=== PATIENT | male | born 1980 | race Caucasian/White ===

== ENCOUNTER 2018-01-10 20:41 | Emergency (ER) | payer OTHER, SELFPAY ==
[2018-01-10 20:45] VITALS: BP 178/94; PULSE 139; RESP 20; TEMP 37.9; O2SAT 98; BMI 32.7
--- NOTE | 2018-01-10 20:55 | HMH.EDUTC ---
[facility] [place] Clinical Impression: Conjunctivitis Qualifiers: Conjunctivitis type: unspecified Laterality: left Qualified Code(s): H10.9 - Unspecified conjunctivitis Disposition: Home, Self-Care Condition on Discharge: Good Instructions: Conjunctivitis, DI for Conjunctivitis Additional Instructions: Use drops as prescribed Follow up with family doctor in 24-48 hours if no improvement or worsening of symptoms Warm compresses on eye will help to soothe the eye Baby shampoo and washrag to clean eye Make sure to wash hands well after applying drops or cleaning eye Straight to ER if any life threatening symptoms Patient was given Gentamycin drops in [facility] and advised 1-2 drops in left eye every 4 hours Referrals: Jordon Curry [Primary Care Provider] - Time of Disposition: 21:10 Medical Decision Making - Medical Records Medical records reviewed: Yes: I reviewed the patient's medical records. - Eulogio Inquiry Pt receiving controlled substance: No Eulogio was queried for this patient: No Vital Signs: 01/10/18 20:45 Temperature 100.2 F H Temperature Source Temporal Artery Scan Pulse Rate [Right Brachial] 139 H Respiratory Rate 20 Blood Pressure [Right Arm] 178/94 Blood Pressure Mean [Right Arm] 122 Blood Pressure Source [Right Arm] Automatic Cuff Blood Pressure Position [Right Arm] Sitting 02 Sat by Pulse Oximetry 98 Oxygen Delivery Method Room Air - Lab Data Lab results reviewed: Yes: I reviewed the patient's lab results. [facility] [place] - General Stated complaint: L eye swollen and red Time Seen by Provider: 01/10/18 20:45 Mode of Arrival: Family Vehicle Source of Information: Patient Limitations: No Limitations Description of Symptoms (Recalled from Triage Doc. by RN): C/O SWOLLEN RED LEFT EYE. STARTED WITH FLU,LIKE SYMPTOMS AND FEVER ON FRIDAY. WAS SEEN IN [facility] ON FRIDAY AND AGAIN BY PCP TODAY HEENT Symptoms (Recalled from RN notes): Yes Resp Symptoms (Recalled from RN notes): Yes Skin Symptoms (Recalled from RN notes): No MS Symptoms (Recalled from RN notes): No Functional Status (Recalled from RN notes): N/A - History of Present Illness Provider Complaint: Patient state that he began having flu like symptoms on and was seen in [facility] and diagnosed with VRI States that symptoms continued to get worse and he saw family doctor this morning and was diagnosed with Sinus infection and put on antibiotics State that he went home and laid down State that later on in the day he begin to have burning and itchy like feeling in his left eye State that then he noticed his eye was looking red and having drainage State that he was worried that he may have pink eye so he came in to get checked out. - Related Data Home Medications Medication Instructions Recorded Confirmed lisinopril 5 mg tablet 5 mg PO ONCE 01/08/18 01/10/18 propranolol 40 mg tablet 40 mg PO ONCE tab 01/08/18 01/10/18 Allergies Allergy/AdvReac Type Severity Reaction Status Date / Time No Known Allergies Allergy Verified 01/10/18 20:54 - Worker's Comp Is this a Worker's Comp case?: No [facility] History I have reviewed the patient's past medical history: Yes Medical History: Reports:: Hypertension Other Surgeries: Yes: No Previous Surgery - Social History Smoking Status: Never smoker Alcohol Intake: never - Psychiatric History Expresses thoughts of harming self/others: None Suicide Plan Description: No Plan Family Hx:: Cancer, Coronary Artery Disease, Hypertension, Hyperlipidemia, Heart Attack ROS Obtained: Yes All systems reviewed & no additional complaints - Constitutional Constitutional: Reports fever(s) - Eyes Eyes: Reports irritation, Reports other Comments: Eye draining, itchy red with matting Physical Exam - General General appearance: alert, in no apparent distress - Expanded Eye Exam Sclera/Conjunctival: left: exudate Comment: Conjunctiva red, drainage noted from tearduct area a
--- NOTE | 2018-01-10 21:01 | ED_ITS ---
[facility] [place] Disposition Clinical Impression: Conjunctivitis Qualifiers: Conjunctivitis type: unspecified Laterality: left Qualified Code(s): H10.9 - Unspecified conjunctivitis Disposition: Home, Self-Care Condition on Discharge: Good Instructions: Conjunctivitis, DI for Conjunctivitis Additional Instructions: Use drops as prescribed Follow up with family doctor in 24-48 hours if no improvement or worsening of symptoms Warm compresses on eye will help to soothe the eye Baby shampoo and washrag to clean eye Make sure to wash hands well after applying drops or cleaning eye Straight to ER if any life threatening symptoms Patient was given Gentamycin drops in [facility] and advised 1-2 drops in left eye every 4 hours Referrals: Jordon Curry [Primary Care Provider] - Time of Disposition: 21:10 Medical Decision Making - Medical Records Medical records reviewed: Yes: I reviewed the patient's medical records. - Eulogio Inquiry Pt receiving controlled substance: No Eulogio was queried for this patient: No Vital Signs: 01/10/18 20:45 Temperature 100.2 F H Temperature Source Temporal Artery Scan Pulse Rate [Right Brachial] 139 H Respiratory Rate 20 Blood Pressure [Right Arm] 178/94 Blood Pressure Mean [Right Arm] 122 Blood Pressure Source [Right Arm] Automatic Cuff Blood Pressure Position [Right Arm] Sitting 02 Sat by Pulse Oximetry 98 Oxygen Delivery Method Room Air - Lab Data Lab results reviewed: Yes: I reviewed the patient's lab results. [facility] [place] HPI - General Stated complaint: L eye swollen and red Time Seen by Provider: 01/10/18 20:45 Mode of Arrival: Family Vehicle Source of Information: Patient Limitations: No Limitations Description of Symptoms (Recalled from Triage Doc. by RN): C/O SWOLLEN RED LEFT EYE. STARTED WITH FLU,LIKE SYMPTOMS AND FEVER ON FRIDAY. WAS SEEN IN [facility] ON FRIDAY AND AGAIN BY PCP TODAY HEENT Symptoms (Recalled from RN notes): Yes Resp Symptoms (Recalled from RN notes): Yes Skin Symptoms (Recalled from RN notes): No MS Symptoms (Recalled from RN notes): No Functional Status (Recalled from RN notes): N/A - History of Present Illness Provider Complaint: Patient state that he began having flu like symptoms on and was seen in [facility] and diagnosed with VRI States that symptoms continued to get worse and he saw family doctor this morning and was diagnosed with Sinus infection and put on antibiotics State that he went home and laid down State that later on in the day he begin to have burning and itchy like feeling in his left eye State that then he noticed his eye was looking red and having drainage State that he was worried that he may have pink eye so he came in to get checked out. - Related Data Home Medications Medication Instructions Recorded Confirmed lisinopril 5 mg tablet 5 mg PO ONCE 01/08/18 01/10/18 propranolol 40 mg tablet 40 mg PO ONCE tab 01/08/18 01/10/18 Allergies Allergy/AdvReac Type Severity Reaction Status Date / Time No Known Allergies Allergy Verified 01/10/18 20:54 - Worker's Comp Is this a Worker's Comp case?: No [facility] History I have reviewed the patient's past medical history: Yes Medical History: Reports:: Hypertension Other Surgeries: Yes: No Previous Surgery - Social History Smoking Status: Never smoker Alcohol Intake: never - Psychiatric History Expresses th
[2018-01-10 21:15] VITALS: BP 171/92; PULSE 144; RESP 20; TEMP 37.9; O2SAT 99
== END 2018-01-10 21:16 | disposition home or self-care (01) ==
PROVIDERS: Emergency Provider Nurse Practitioner; Family Provider Internal Medicine; PCP Internal Medicine
DX: H10.32 Unspecified acute conjunctivitis, left eye (principal); I10 Essential (primary) hypertension
CPT/HCPCS: 99201

== ENCOUNTER → 2019-08-10 08:47 | Outpatient (CLI) | payer OTHER, SELFPAY ==
--- NOTE | 2019-08-10 08:52 | US_ITS ---
PROCEDURE: US ABDOMEN COMPLETE CLINICAL INDICATION: ABD PAIN RADIATING RT GROIN Right upper quadrant pain COMPARISON: No exams were available for comparison FINDINGS: PANCREAS: Unremarkable. No obvious mass or abnormal fluid collection. No ductal dilatation LIVER: No focal liver lesions demonstrated. Homogeneous echogenicity. No intrahepatic biliary ductal dilatation evident. There is appropriate direction of blood flow within a non dilated portal vein. There is increased echogenicity of the liver with poor through transmission of sound consistent with fatty liver. RIGHT KIDNEY: Unremarkable. Normal size and echogenicity. No hydronephrosis LEFT KIDNEY: Unremarkable. Normal size and echogenicity. No hydronephrosis GALLBLADDER: No gallstones, gallbladder wall thickening, pericholecystic fluid, or biliary dilatation. AORTA: No evidence of aneurysmal dilatation. SPLEEN: Unremarkable. Normal size and echogenicity ASCITES: None demonstrated. IMPRESSION: Fatty liver otherwise negative Dictated by: Liam Mccord MD 08/10/2019 17:59 Electronically signed by Liam Mccord MD in [place] 08/10/2019 17:59
== END ==
PROVIDERS: PCP Internal Medicine; Visit Provider Internal Medicine
DX: R10.31 Right lower quadrant pain (principal)
CPT/HCPCS: 76700

== ENCOUNTER → 2020-03-06 12:27 | Outpatient (CLI) | payer OTHER, SELFPAY ==
[2020-03-06 18:08] LABS: Coronavirus 19 IgG Antibody Negative (Negative); Coronavirus 19 IgM Antibody Negative (Negative)
== END ==
PROVIDERS: Visit Provider Internal Medicine
DX: Z03.818 Encounter for observation for suspected exposure to other biological agents ruled out (principal)
CPT/HCPCS: 36415; 86328

== ENCOUNTER → 2020-08-23 06:48 | Outpatient (CLI) | payer OTHER, SELFPAY ==
[2020-08-23 14:39] LABS: Chol/HDL Ratio 4.1 (1-3.5); Cholesterol 172 mg/dl (140-200); HDL Cholesterol 42 mg/dl (40-60); Triglycerides 246 mg/dl (30-150); VLDL Cholesterol 49 mg/dL (0-40)
== END ==
PROVIDERS: Visit Provider Internal Medicine
DX: E78.5 Hyperlipidemia, unspecified (principal)
CPT/HCPCS: 36415; 80061

== ENCOUNTER → 2021-02-05 10:13 | Outpatient (CLI) | payer OTHER, SELFPAY ==
--- NOTE | 2021-02-05 | ECG_ITS ---
APPROVED REPORT Exam: Resting ECG HR:73 bpm ECG Measurements Heart Rate 73 AXES AL 150 P 46 QRSd 96 QRS 84 QT 378 T 44 QTc 416 Conclusion Normal sinus rhythm Normal ECG Electronically signed by : Jordon Curry, 02/07/2021 15:22:22
--- NOTE | 2021-02-05 10:25 | XR_ITS ---
PROCEDURE: XR CHEST 2V CLINICAL HISTORY: LT CHEST PAIN, SOA COMPARISON: CR CXR CHEST(2 VIEWS-NOT PORTABLE) from 12/04/2015 FINDINGS: The cardiomediastinal silhouette and pulmonary vascularity are within normal limits. The lungs are clear without infiltrates, suspicious nodules, or pleural effusions. No acute bony abnormalities. IMPRESSION: No acute findings. Dictated by: Liam Mccord MD 02/05/2021 10:43 Liam Mccord MD in [place] 02/05/2021 10:43
[2021-02-05 10:57] LABS: Troponin I < 0.01 ng/ml (0.00-0.034)
== END ==
PROVIDERS: PCP Internal Medicine; Visit Provider Internal Medicine
DX: R07.9 Chest pain, unspecified (principal); R06.02 Shortness of breath
CPT/HCPCS: 36415; 71046; 84484; 93005

== ENCOUNTER → 2021-02-13 09:50 | Outpatient (CLI) | payer OTHER, SELFPAY ==
--- NOTE | 2021-02-13 | CA_ITS ---
APPROVED REPORT Exam: Exercise Treadmill Technologist: Kelly Musa, Ht: 5 ft 10 in Wt: 237 lbs BSA: 2.24 m2 HR: 87 bpm BP: 154/90 mmHg Medical History Medications: Lisinopril,,,,, Bystolic,,,,, AtorvastaIN,,,,, Stress Test Details Test: Kale HR Resting HR: 97 bpm Max Heart Rate (APMHR): 182 bpm Max HR Achieved: 163 bpm Target HR (85% APMHR): 154 bpm % of APMHR: 89 Recovery HR: 112 bpm BP Resting BP: 146/102 mmHg Max BP: 174/88 mmHg Recovery BP: 153.0/91.0 mmHg ECG Resting ECG: NSR, rightward axis, ST-T abns inferiorly-consider strain pattern Recovery Arrhythmia: None, APC, VPC, Atrial Fibrillation, SVT, Non-sustained ventricular tachycardia, Ventricular tachycardia Clinical Exercise duration: 09:37 min Highest Stage Achieved: Exercise capacity: 10.1 METs Stress ECG Conclusion Exercised 9:37 on Kale Protocol Max HR: 163 % of PM: 90% Max BP: 174/88 METs: 10.1 Stopped due to SOA Symptoms: SOA, No CP Arrhythmias/Ectopy: One PVC-not captured. ST-T Changes: less than 1.[address] depression,normal GXT Conclusion: NORMAL GXT Test Summary REST 03:17 0.0 0.0 97 . 146/102 . . Stage 1 01:00 10.0 1.7 105 . . . . Stage 1 02:00 10.0 1.7 111 . . . . Stage 1 03:00 10.0 1.7 114 . . . . Stage 2 01:00 12.0 2.5 120 . 154/ 94 . . Stage 2 02:00 12.0 2.5 118 . 154/ 94 . . Stage 2 03:00 12.0 2.5 128 . 160/ 88 . . Stage 3 01:00 14.0 3.4 141 . . . . Stage 3 02:00 14.0 3.4 146 . . . . Stage 3 03:00 14.0 3.4 155 . 174/ 88 . . Stage 4 00:37 16.0 4.2 163 . . . Stop exercise at 09:37 RECOVERY 01:00 0.0 0.0 140 . . . . RECOVERY 02:00 0.0 0.0 121 . . . . RECOVERY 03:00 0.0 0.0 123 . 166/ 94 . . RECOVERY 04:00 0.0 0.0 117 . 166/ 94 . . RECOVERY 05:00 0.0 0.0 112 . 157/ 91 . . RECOVERY 05:36 0.0 0.0 110 . 153/ 91 . . Electronically signed by : James Lopes, 02/13/2021 21:42:20
== END ==
PROVIDERS: PCP Internal Medicine; Visit Provider Internal Medicine
DX: R07.9 Chest pain, unspecified (principal); R06.02 Shortness of breath
CPT/HCPCS: 93017

== ENCOUNTER → 2021-07-23 10:18 | Outpatient (CLI) | payer OTHER, SELFPAY ==
[2021-07-23 11:03] LABS: Coronavirus 19, PCR Not Detected (NotDetected); Influenza A, PCR Not Detected (NotDetected); Influenza B, PCR Not Detected (NotDetected)
== END ==
PROVIDERS: PCP Internal Medicine; Visit Provider Internal Medicine
DX: Z20.822 Contact with and (suspected) exposure to COVID-19 (principal)
CPT/HCPCS: C9803; U0003; U0005

== ENCOUNTER → 2021-08-13 14:00 | Outpatient (CLI) | payer OTHER, SELFPAY ==
[2021-08-13 14:02] LABS: Adenovirus F 40/41, stool Not Detected (NotDetected); Astrovirus Not Detected (NotDetected); Campylobacter Not Detected (NotDetected); Clostridium Difficile A/B, PCR Not Detected (NotDetected); Cryptosporidium Not Detected (NotDetected); Cyclospora Cayetanesis Not Detected (NotDetected); Entamoeba histolytica Not Detected (NotDetected); Enteroaggregative E coli Not Detected (NotDetected); Enteropathogenic E coli Not Detected (NotDetected); Enterotoxigenic E coli Not Detected (NotDetected); Giardia lamblia Not Detected (NotDetected); Norovirus Not Detected (NotDetected); Plesimonas Shigalloides, PCR Not Detected (NotDetected); Rotavirus A Not Detected (NotDetected); Salmonella, PCR Not Detected (NotDetected); Sapovirus Not Detected (NotDetected); Shiga-like toxin E coli Not Detected (NotDetected); Shigella Enterovasive E coli Not Detected (NotDetected); Vibrio Cholerae Not Detected (NotDetected); Vibrio, PCR Not Detected (NotDetected); Yersinia Entercolitica, PCR Not Detected (NotDetected)
== END ==
PROVIDERS: Visit Provider Internal Medicine
DX: K52.9 Noninfective gastroenteritis and colitis, unspecified (principal)
CPT/HCPCS: 87507

== ENCOUNTER 2021-09-11 05:13 | Emergency (ER) | payer OTHER, SELFPAY ==
[2021-09-11 05:14] VITALS: BP 144/93; PULSE 109; RESP 16; TEMP 36.3; O2SAT 97; BMI 34.2
--- NOTE | 2021-09-11 05:32 | HMH.EDGENADL ---
ED Disposition Clinical Impression: Cat bite of hand Qualifiers: Encounter type: initial encounter Laterality: right Qualified Code(s): S61.451A - Open bite of right hand, initial encounter; W55.01XA - Bitten by cat, initial encounter Disposition: Home, Self-Care Condition on Discharge: Good Instructions: How to Care for a Domestic Animal Bite, DI for Cat Bite Additional Instructions: You have been evaluated for cat bite. Please keep the wounds clean, dry. You may shower normally. Take Augmentin twice daily as prescribed. Follow-up with your primary care doctor for wound check in 1 to 2 days. We have recommended rabies immunoglobulin and rabies vaccination. Animals need to be watched for 10 days after bite. Please return to the emergency department for any new or worsening symptoms, pain, redness, swelling, fevers, other concerns Prescriptions: Amoxicillin/Potassium Clav [Augmentin 875-125 Tablet] 1 tab PO Q12H #14 tab Transmission Status: Pending to Clinic [facility] Referrals: Jordon Curry [Primary Care Provider] - Time of Disposition: 05:44 - Critical Care Critical Care Time: No Attestation: On 09/11/21, the high probability of a clinically significant, sudden or life threatening deterioration of the following system(s) required my full and direct attention, intervention and personal management. The time I documented below is in addition to time spent performing reported procedures but includes the following listed in this critical care notation. Medical Decision Making - Medical Records Medical records reviewed: Yes: I reviewed the patient's medical records. - Eulogio Inquiry Pt receiving controlled substance: No Medical Decision Narrative: In summary this is a 40-year-old [id number] male presenting to the emergency department with cat bites to his right hand. Patient clinically stable on arrival. Vital signs within normal limits. Wounds are clean. Nongaping. Would not require repair. There are also no wounds over joints or flexor surfaces. Patient counseled on Augmentin. The cat is not a pet, I recommend rabies immunoglobulin and rabies vaccine. Patient says this is a cat that he sees frequently. He would like to catch it and observe it for 10 days. Given prescription for Augmentin. Recommended close PCP follow-up. Cat bite is at high risk of infection. Given return precautions for any new or worsening redness, swelling, pain, other concerns General Adult HPI - General Stated complaint: cat bite r hand Time Seen by Provider: 09/11/21 05:32 Mode of Arrival: Ambulatory Source of Information: Patient Limitations: No Limitations - History of Present Illness HPI narrative: 40-year-old male presenting to the emergency department with cat bite to the right hand. He works as hospital maintenance. Chest prior to arrival a cat got into the hospital. He was trying to catch it when he was bit on the ulnar aspect of his right hand. Few small bite duarte. No deep punctures. Has minimal pain. No pain with finger motion. No bite duarte over flexor surfaces or joint spaces. Patient is up-to-date on tetanus. He believes that this cat is frequently around the hospital. However, it is not a pet. Uncertain that it will be able to be watched for signs of rabies. - Related Data Home Medications Medication Instructions Recorded Confirmed lisinopril 5 mg tablet 5 mg PO ONCE 01/08/18 08/01/20 propranolol 40 mg tablet 40 mg PO ONCE tab 01/08/18 08/01/20 Previous Rx's Medication Instructions Recorded Amoxicillin/Potassium Clav 1 tab PO Q12H #14 tab 09/11/21 [Augmentin 875-125 Tablet] Allergies Allergy/AdvReac Type Severity Reaction Status Date / Time No Known Allergies Allergy Verified 08/01/20 08:21 [facility] History - Hepatitis A Screen Attestation statement:: This patient has been screened for Hepatitis A risk factors. Medical History: Reports:: Hypertension Oth
[2021-09-11 06:18] VITALS: BP 139/89; PULSE 97; RESP 16; TEMP 36.3; O2SAT 97
== END 2021-09-11 06:18 | disposition home or self-care (01) ==
PROVIDERS: Emergency Provider Emergency Medicine; PCP Internal Medicine
DX: S61.451A Open bite of right hand, initial encounter (principal); W55.01XA Bitten by cat, initial encounter; Y99.0 Civilian activity done for income or pay
CPT/HCPCS: 99281

== ENCOUNTER 2021-09-14 13:26 | Outpatient (CLI) | payer OTHER, SELFPAY ==
[2021-09-14 13:46] VITALS: BP 152/88; PULSE 86; RESP 18; O2SAT 98
== END 2021-09-14 13:46 | disposition home or self-care (01) ==
LOC: INF 13:27
PROVIDERS: PCP Internal Medicine; Visit Provider Internal Medicine
DX: S61.459A Open bite of unspecified hand, initial encounter (principal)
CPT/HCPCS: 90675; 96372

== ENCOUNTER 2021-09-18 12:59 | Outpatient (CLI) | payer OTHER, SELFPAY | END 2021-09-18 13:29 | disposition home or self-care (01) | LOC: INF 13:01 | PROVIDERS: PCP Internal Medicine; Visit Provider Internal Medicine | DX: S61.451D Open bite of right hand, subsequent encounter (principal); W55.01XD Bitten by cat, subsequent encounter | CPT/HCPCS: 90675; 96372 ==

== ENCOUNTER 2021-09-25 10:19 | Outpatient (CLI) | payer OTHER, SELFPAY | END 2021-09-25 10:29 | disposition home or self-care (01) | LOC: INF 10:20 | PROVIDERS: PCP Internal Medicine; Visit Provider Internal Medicine | DX: S61.451D Open bite of right hand, subsequent encounter (principal); W55.01XD Bitten by cat, subsequent encounter | CPT/HCPCS: 90675; 96372 ==

== ENCOUNTER → 2021-10-10 10:46 | Outpatient (CLI) | payer OTHER, SELFPAY ==
--- NOTE | 2021-10-10 10:48 | CA_ITS ---
FINAL REPORT TECHNIQUE: Ultrasound images of the deep venous system were obtained from the left groin to the calf veins. CLINICAL HISTORY: EDEMA X SEVERAL WEEKS,NKI FINDINGS: The deep venous system is normally compressible. Normal flow is identified. IMPRESSION: No evidence of left lower extremity DVT. Reviewed, Interpreted and Dictated by Nick Aparicio MD Transcribed by Pradeep Collazo Authenticated by Nick Aparicio MD on 10/10/2021 12:17:48 PM [facility]
== END ==
PROVIDERS: PCP Internal Medicine; Visit Provider Internal Medicine
DX: M79.662 Pain in left lower leg (principal); M79.89 Other specified soft tissue disorders; R60.0 Localized edema
CPT/HCPCS: 93971

== ENCOUNTER → 2021-11-12 10:10 | Outpatient (CLI) | payer OTHER, SELFPAY ==
--- NOTE | 2021-11-12 10:14 | XR_ITS ---
FINAL REPORT CLINICAL HISTORY: LT FOOT PAIN,SWELLING, FINDINGS: 3 views of the left foot were obtained. There is no acute fracture or dislocation. The joint spaces are intact. The soft tissues are unremarkable. IMPRESSION: No acute process. Reviewed, Interpreted and Dictated by Anthony Camejo III, MD Transcribed by Pradeep Collazo Authenticated by Anthony Camejo III, MD on 11/12/2021 11:28:26 AM [facility]
== END ==
PROVIDERS: PCP Internal Medicine; Visit Provider Internal Medicine
DX: M79.672 Pain in left foot (principal); M25.472 Effusion, left ankle
CPT/HCPCS: 73630

== ENCOUNTER → 2022-05-15 14:18 | Outpatient (CLI) | payer OTHER, SELFPAY ==
--- NOTE | 2022-05-15 14:21 | CT_ITS ---
FINAL REPORT CLINICAL HISTORY: RUQ,RLQ PAIN FINDINGS: Axial CT images of the abdomen and pelvis were obtained without intravenous contrast. Coronal reformatted images were also obtained.This study was performed with techniques to keep radiation doses as low as reasonably achievable (ALARA). Individualized dose reduction techniques using automated exposure control or adjustment of mA and/or kV according to the patient's size were employed. Abdomen: The lung bases are clear. There is no evidence of renal stone or hydronephrosis. The liver is fatty infiltrated. The gallbladder is collapsed. The spleen and pancreas have an unremarkable, unenhanced appearance. No mass or adenopathy is seen. No inflammatory process is identified. There are several sigmoid diverticulum. There is a small umbilical hernia containing fat. Pelvis: Images of the pelvis reveal no evidence of ureteral dilation or ureteral stone.No mass or abnormal fluid collection is identified. The appendix is normal. IMPRESSION: No renal or ureteral stone, or hydronephrosis. Diverticulosis without evidence of diverticulitis. Reviewed, Interpreted and Dictated by Anthony Camejo III, MD Transcribed by Pradeep Collazo Authenticated and [facility]
[2022-05-15 14:26] LABS: Microscopic, Urine URINE MICROSCOPIC (MICROSCOPIC)
[2022-05-15 14:47] LABS: Basophils # 0.2 K/mm3 (0-0.2); Basophils % 1.3 % (0.1-2.0); Eosinophils # 0.3 K/mm3 (0.0-0.4); Eosinophils % 2.2 % (0.1-12.0); Hematocrit 46.6 % (42.0-52.0); Hemoglobin 15.8 g/dL (14.1-18.0); Lymphocytes # 3.5 K/mm3 (0.7-4.5); Lymphocytes % 26.2 % (10-50); Mean Corpuscular Volume 91.2 fl (80-94); Mean Platelet Volume 8.9 fl (7.4-10.4); Monocytes # 0.8 K/mm3 (0.1-1.0); Monocytes % 6.1 % (1.7-9.3); Neutrophils # 8.5 K/mm3 (1.8-7.8); Neutrophils % 64.2 % (37.0-80.0); Platelet Count 277 K/mm3 (142-424); Red Blood Count 5.11 M/mm3 (4.60-6.20); Red Cell Distribution Width 13.6 % (11.5-17.5); White Blood Count 13.2 K/mm3 (4.8-10.8)
[2022-05-15 14:53] LABS: Appearance,Urine CLEAR (Clear); Bilirubin,Urine Negative (Negative); Blood, Urine Negative (Negative); Color,Urine YELLOW (Yellow); Glucose,Urine (UA) Negative (Negative); Ketones,Urine Negative (Negative); Leukocyte Esterase,Urine Negative (Negative); Nitrate,Urine Negative (Negative); Protein,Urine Negative (Negative); Specific Gravity, Urine >= 1.030 (1.005-1.030); Urobilinogen,Urine 0.2 EU/dl (0.2)
[2022-05-15 15:02] LABS: Alanine Aminotransferase 86 U/L (12-78); Albumin Level 4.4 g/dl (3.5-5.0); Albumin/Globulin Ratio 1.6 (1.1-1.8); Alkaline Phosphatase 134 U/L (38-126); Amylase 66 U/L (30-110); Anion Gap 12.8 mEq/L (5-15); Aspartate Amino Transferase 49 U/L (17-59); Bilirubin,Total 0.2 mg/dl (0.2-1.3); Blood Urea Nitrogen 17 mg/dl (9-20); Carbon Dioxide 28 mmol/L (22.0-30.0); Chloride 104 mmol/L (98-107); Estimated Glomerular Filt Rate 75 ml/min (>60); GFR (African American) 90 ML/MIN (>60); Globulin 2.7 g/dL (1.3-3.2); Glucose 95 mg/dl (74-100); Potassium 4.8 mmoL/L (3.5-5.1); Sodium 140 mmol/L (136-145); Total Protein,Serum 7.1 g/dl (6.3-8.2)
[2022-05-15 15:20] LABS: Bacteria,Urine Trace /lpf
== END ==
PROVIDERS: PCP Internal Medicine; Visit Provider Internal Medicine
DX: R10.11 Right upper quadrant pain (principal); R10.31 Right lower quadrant pain
CPT/HCPCS: 74176; 80053; 81001; 82150; 85025

== ENCOUNTER → 2022-05-16 06:16 | Outpatient (CLI) | payer OTHER, SELFPAY ==
--- NOTE | 2022-05-16 09:41 | US_ITS ---
FINAL REPORT CLINICAL HISTORY: RUQ PAIN,RLQ PAIN FINDINGS: Sonographic images of the right upper quadrant were obtained. The pancreas is partially obscured. The liver has increased echogenicity consistent with fatty infiltration. There is sludge within the gallbladder without evidence of gallstones. There is no evidence of biliary ductal dilatation.The common duct measures 3 mm. The right kidney measures 10 cm and the limited images are unremarkable. IMPRESSION: Fatty liver. Gallbladder sludge without evidence of gallstones. Reviewed, Interpreted and Dictated by Anthony Camejo III, MD Transcribed by Iris Phipps Authenticated and [facility]
== END ==
PROVIDERS: PCP Internal Medicine; Visit Provider Internal Medicine
DX: R10.11 Right upper quadrant pain (principal); R10.31 Right lower quadrant pain
CPT/HCPCS: 76705

== ENCOUNTER → 2023-02-12 10:57 | Outpatient (CLI) | payer OTHER, SELFPAY ==
[2023-02-12 14:41] LABS: Anion Gap 21.9 mEq/L (5-15); Blood Urea Nitrogen 21 mg/dl (9-20); Calcium 9.1 mg/dl (8.4-10.2); Carbon Dioxide 25 mmol/L (22.0-30.0); Chloride 98 mmol/L (98-107); Estimated Glomerular Filt Rate 67 ml/min (>60); GFR (African American) 81 ML/MIN (>60); Glucose 83 mg/dl (74-100); Potassium 3.9 mmoL/L (3.5-5.1); Sodium 141 mmol/L (136-145)
== END ==
PROVIDERS: PCP Internal Medicine; Visit Provider Internal Medicine
DX: I10 Essential (primary) hypertension (principal); F33.1 Major depressive disorder, recurrent, moderate; F41.9 Anxiety disorder, unspecified
CPT/HCPCS: 80048

== ENCOUNTER 2023-07-31 08:25 | Emergency (ER) | payer OTHER, SELFPAY ==
[2023-07-31 08:35] VITALS: BP 134/80; PULSE 78; RESP 20; TEMP 36.7; O2SAT 97; BMI 36.7
--- NOTE | 2023-07-31 08:36 | XR_ITS ---
FINAL REPORT CLINICAL HISTORY: ran over foot with floor machine COMPARISON: 11/12/2021 FINDINGS: LEFT FOOT: Three views of the left foot were obtained. There is no acute fracture or dislocation. The joint spaces are intact. There is no soft tissue abnormality. IMPRESSION: No acute bony abnormality. Reviewed, Interpreted and Dictated by Anthony Camejo III, MD Transcribed by Mara Child Authenticated and [facility]
--- NOTE | 2023-07-31 08:42 | EXP.UTC ---
Discharge Plan Disposition Patient Disposition: Home, Self-Care Condition: Good Prescriptions Prescriptions: New ibuprofen [IBU] 800 mg tablet 800 mg PO Q8HP PRN (Reason: Moderate Pain) Qty: 30 0RF mupirocin 2 % ointment 1 applic topical TID 7 Days Qty: 15 0RF No Action lisinopril-hydrochlorothiazide 20-12.5 mg tablet 1 tab PO DAILY bisoprolol fumarate 5 mg tablet 5 mg PO DAILY sertraline 50 mg tablet 50 mg PO DAILY Referrals Follow up/Referrals: Jordon Curry MD [Primary Care Provider] - See instructions Marianna Blount DPM [Staff Physician] - See instructions Activity Restrictions/Add. Instructions Additional Instructions/Restrictions: Rest the extremity, apply ice for 15 minutes as tolerated three or four times per day, Elevate the extremity as tolerated while you are resting. Take ibuprofen for pain. I sent in a prescription to your pharmacy. Follow up with Dr. Blount (podiatry). I put in a referral but you need to call her office and schedule an appointment. Follow up with your regular doctor. GO TO THE ER FOR ANY WORSENING SYMPTOMS Clinical Impressions Clinical Impression: Crush injury of right foot, Contusion of right great toe with damage to nail Stand Alone Forms Stand Alone Forms: Work/School Release Instructions Patient Instructions: DI for Crush Injury Discharge ED Provider: Prem Fraser [facility] [place] [place] General Stated complaint: [id number] left big toe injury Time Seen by Provider: 07/31/23 08:42 History of Present Illness Provider Complaint: He states that about 15 minutes ago he was using a floor cleaning machine when it accidentally ran of the toes of his right foot. This caused damage to the great toe nail and pain of all his toes. He denies any other injury. He is not a diabetic. Related Data Home Medications Medication Instructions Recorded Confirmed bisoprolol fumarate 5 mg tablet 5 mg PO DAILY Hypertension 07/31/23 07/31/23 lisinopril 20 1 tab PO DAILY Hypertension 07/31/23 07/31/23 mg-hydrochlorothiazide 12.5 mg tablet sertraline 50 mg tablet 50 mg PO DAILY 07/31/23 07/31/23 Previous Rx's Medication Instructions Recorded ibuprofen 800 mg tablet (IBU) 800 mg PO Q8HP PRN Moderate Pain 07/31/23 #30 tabs mupirocin 2 % topical ointment 1 applic topical TID 7 days #15 07/31/23 grams Allergies Allergy/AdvReac Type Severity Reaction Status Date / Time No Known Allergies Allergy Verified 08/01/20 08:21 [facility] Disclaimer: The information contained in this section may have been updated after the patient was seen, as this information can be updated by other users. Medical History (Updated 07/31/23 @ 09:57 by Prem Fraser APRN) Anxiety Hyperlipidemia Hypertension Social History Smoking Status: Never smoker alcohol intake: never substance use type: denies use current occupational status: employed Travel in the last 8 weeks: None ROS Obtained: Yes All systems reviewed & no additional complaints except as documented Constitutional Constitutional: Denies chills and Denies fever(s) Eyes Eyes: Denies eye discharge ENT Ears, Nose, Mouth, and Throat: Denies dizziness, Denies otalgia and Denies sore throat Cardiovascular Cardiovascular: Denies chest pain Respiratory Respiratory: Denies shortness of breath, Denies chest congestion, Denies cough, Denies stridor and Denies wheezing Gastrointestinal Gastrointestingal: Denies nausea or vomiting Musculoskeletal Musculoskeletal: Reports as per HPI Integumentary/Breasts Skin/Breast: Denies rash Neurologic Neurologic: Denies dizziness and Denies paresthesias Allergic/Immunologic Allergic/Immunologic: Denies wheezing Physical Exam General General appearance: alert and in no apparent distress Head Head exam: atraumatic, normocephalic and normal inspection Eye Eye exam: Present normal appearance, PERRL and EOMI ENT ENT exam: Present normal exam, no
[2023-07-31 08:50] VITALS: BP 134/80; PULSE 78; RESP 20; TEMP 36.7; O2SAT 97
== END 2023-07-31 09:59 | disposition home or self-care (01) ==
PROVIDERS: Emergency Provider Nurse Practitioner Family; PCP Internal Medicine
DX: S97.81XA Crushing injury of right foot, initial encounter (principal); S90.211A Contusion of right great toe with damage to nail, initial encounter; I10 Essential (primary) hypertension; E78.5 Hyperlipidemia, unspecified; W23.0XXA Caught, crushed, jammed, or pinched between moving objects, initial encounter
CPT/HCPCS: 73630; 99204; 99212; G0463

== ENCOUNTER 2025-06-15 10:03 | Outpatient (CLI) | payer BC, SELFPAY ==
--- NOTE | 2025-06-15 10:06 | XR_ITS ---
FINAL REPORT CLINICAL HISTORY: Harsh cough, bronchitis COMPARISON: 02/05/2021 FINDINGS: 2 views of the chest were obtained . The heart is normal in size. The mediastinum is within normal limits. The lungs are clear. There is no pneumothorax. Osseous structures are unremarkable. IMPRESSION: No acute cardiopulmonary process. Reviewed, Interpreted and Dictated by Shaniqua Bassett MD Transcribed by Kiara Gonzalez Authenticated and [facility]
== END 2025-06-15 23:59 | disposition home or self-care (01) ==
LOC: LAB 10:05
PROVIDERS: PCP Internal Medicine; Visit Provider Internal Medicine
DX: R50.9 Fever, unspecified (principal); R05.8 Other specified cough
CPT/HCPCS: 71046; 87265